=== PATIENT | male | born 1945 | race Caucasian/White ===

== ENCOUNTER 2016-06-21 17:24 | Emergency (ER) | payer OTHER ==
[~2016-06-21] VITALS: Ht 177.8 cm; Wt 81.6 kg
[2016-06-21 17:26] VITALS: BP 133/75; PULSE 71; RESP 16; TEMP 98.6; O2SAT 98
[2016-06-21 20:15] VITALS: BP 129/72; PULSE 73; RESP 17; TEMP 98.3; O2SAT 98
== END 2016-06-21 20:15 | disposition home or self-care (01) ==
LOC: SED 17:24
DX: S20.20XA Contusion of thorax, unspecified, initial encounter (principal); E11.9 Type 2 diabetes mellitus without complications; G20 Parkinson's disease; Z98.890 Other specified postprocedural states; Z90.49 Acquired absence of other specified parts of digestive tract; W18.39XA Other fall on same level, initial encounter; Y93.89 Activity, other specified; Y99.8 Other external cause status; Y92.89 Other specified places as the place of occurrence of the external cause
CPT/HCPCS: 71100; 99284

== ENCOUNTER 2018-09-09 10:40 | Emergency (ER) | payer OTHER ==
[~2018-09-09] VITALS: Ht 175.3 cm; Wt 81.2 kg
[~2018-09-09 10:40] MED LIST: ASPI-1153 PO; CANA300T PO; CARB-62 PO; ENAL5TAB77 PO; ESOM20CA33 PO; GLIM1TAB PO; HYDR25TA4 PO; INSU100I24 SQ; METF1000 PO; MULT PO; PIOG30TA70 PO; RASA1TAB4 PO; SAXA5TAB PO; SIMV40TA2 PO; VITD2000 PO
--- NOTE | 2018-09-09 10:42 | NUR ---
Placed in room 4. Placed on residential monitor, blood pressure machine and pulse oximeter. To gown for exam. Side rails up. Report given to Nehemias ASTUDILLO.
[2018-09-09 10:43] VITALS: BP_SYST 111
--- NOTE | 2018-09-09 10:44 | NUR ---
ER Dr. ERNANDEZ at bedside examining patient.
--- NOTE | 2018-09-09 10:45 | NUR ---
Patient is awake, alert, and oriented x3. Patient was brought in by ambulance. Patient had a fall, presents with scrapes to both elbows and the top of his head, no active bleeding noted.
[2018-09-09] MEDS ORDERED: ACETAMINOPHEN 325 MG TABLET PO ONE (11:00)
[2018-09-09] MEDS ORDERED: BACITRACIN 1 GM OINT TP ONE (11:00)
[2018-09-09] MEDS ORDERED: NS 500 ML IV ONE (11:00)
--- NOTE | 2018-09-09 11:16 | NUR ---
PATIENT LEAVING TO GET X RAY VIA GURNEY. PATIENT HAS NO SIGNS OF DISTRESS.
[2018-09-09 11:22] LABS: BASOPHILS % (AUTO) 0.6 % (0.0-2.0); EOSINOPHILS # (AUTO) 0.1 K/uL (0.0-0.4); EOSINOPHILS % (AUTO) 0.9 % (0.0-4.0); HEMATOCRIT 34.9 % (36-54); HEMOGLOBIN 11.7 g/dL (14.0-18.0); LYMPHOCYTES # (AUTO) 0.5 K/uL (1.0-5.5); LYMPHOCYTES % (AUTO) 7.1 % (20.5-51.5); MEAN CORPUSCULAR HEMOGLOBIN 30 pg (27-31); MEAN CORPUSCULAR HGB CONC 33 % (32-36); MEAN CORPUSCULAR VOLUME 88 fL (79.0-98.0); MONOCYTES # (AUTO) 0.4 K/uL (0.0-1.0); MONOCYTES % (AUTO) 5.5 % (1.7-9.3); NEUTROPHILS % (AUTO) 85.9 % (40.0-70.0); PLATELET COUNT (AUTO) 231 K/uL (130-430); RED BLOOD CELL COUNT(AUTO) 3.95 MIL/uL (4.2-6.2); RED CELL DISTRIBUTION WIDTH 13.5 % (9.0-15.0)
[2018-09-09 11:30] LABS: ANION GAP 11 (5-15); CALCIUM 9.2 mg/dL (8.4-11.0); CHLORIDE 103 mmol/L (98-107); CREATININE 1.91 mg/dL (0.55-1.30); GLUCOSE 166 mg/dL (70-99); POTASSIUM 4.3 mmol/L (3.5-5.1); SODIUM SERUM 138 mmol/L (136-145); UREA NITROGEN, BLOOD 39 mg/dL (8-21)
[2018-09-09 11:32] LABS: PROTHROMBIN TIME 10.4 SECS (9.5-12.5)
[2018-09-09 11:35] LABS: ALANINE AMINOTRANSFERASE 7 U/L (12-78); ALBUMIN 3.5 g/dL (3.4-4.8); ASPARTATE AMINOTRANSFERASE 17 U/L (10-37)
--- NOTE | 2018-09-09 11:53 | NUR ---
PATIENT BACK FROM RADIOLOGY.
[2018-09-09 12:51] LABS: BILIRUBIN,URINE NEGATIVE (NEGATIVE); BLOOD, URINE NEGATIVE (NEGATIVE); CLARITY/URINE CLEAR (CLEAR); COLOR,URINE YELLOW (YELLOW); GLUCOSE,URINE 3+ (NEGATIVE); KETONES,URINE TRACE (NEGATIVE); LEUKOCYTE ESTERASE ,URINE NEGATIVE (NEGATIVE); NITRITE, URINE NEGATIVE (NEGATIVE); PH,URINE 5.5 (5.0-8.0); PROTEIN URINE NEGATIVE (NEGATIVE); UROBILINOGEN,URINE 0.2 (0.2-1.0)
[2018-09-09 13:33] LABS: BACTERIA,URINE None Seen /HPF (None Seen); HYALINE CASTS, URINE 0-10 /LPF (None Seen); RBC,URINE 0-3 /HPF (0-3); WBC,URINE 0-3 /HPF (0-3)
[2018-09-09 13:46] VITALS: BP_SYST 129
--- NOTE | 2018-09-09 13:46 | NUR ---
Patient given written and verbal discharge instructions and verbalizes understanding. ER MD discussed with patient the results and treatment provided. Patient in stable condition. ID arm band removed. IV catheter removed intact and dressing applied, no active bleeding. Rx of bacitracin, keflex, tylenol given. Patient educated on pain management and to follow up with PMD. Pain Scale 0/10. Opportunity for questions provided and answered. Medication side effect fact sheet provided.
== END 2018-09-09 13:46 | disposition home or self-care (01) ==
LOC: SED 10:40
DX: S09.90XA Unspecified injury of head, initial encounter (principal); S50.312A Abrasion of left elbow, initial encounter; S50.311A Abrasion of right elbow, initial encounter; N28.9 Disorder of kidney and ureter, unspecified; E11.9 Type 2 diabetes mellitus without complications; K21.9 Gastro-esophageal reflux disease without esophagitis; I10 Essential (primary) hypertension; G20 Parkinson's disease; E78.5 Hyperlipidemia, unspecified; Z90.49 Acquired absence of other specified parts of digestive tract; Z90.89 Acquired absence of other organs; Z79.82 Long term (current) use of aspirin; Z79.899 Other long term (current) drug therapy; W01.0XXA Fall on same level from slipping, tripping and stumbling without subsequent striking against object, initial encounter; Y93.01 Activity, walking, marching and hiking; Y92.89 Other specified places as the place of occurrence of the external cause; Y99.8 Other external cause status
CPT/HCPCS: 36415; 70450; 71045; 73060; 73070; 73080; 80053; 81000; 84484; 85025; 85610; 85730; 93005; 99284; J7040

== ENCOUNTER 2018-09-28 01:26 | Emergency (ER) | payer OTHER ==
[~2018-09-28] VITALS: Ht 175.3 cm; Wt 81.6 kg
[2018-09-28 01:30] VITALS: BP_SYST 131
[2018-09-28 02:45] VITALS: BP_SYST 131
== END 2018-09-28 02:45 | disposition home or self-care (01) ==
LOC: SED 01:26
DX: R33.9 Retention of urine, unspecified (principal); K59.00 Constipation, unspecified; K21.9 Gastro-esophageal reflux disease without esophagitis; E11.9 Type 2 diabetes mellitus without complications; I10 Essential (primary) hypertension; E78.5 Hyperlipidemia, unspecified; G20 Parkinson's disease; Z90.49 Acquired absence of other specified parts of digestive tract; Z90.89 Acquired absence of other organs; Z79.82 Long term (current) use of aspirin; Z79.899 Other long term (current) drug therapy
CPT/HCPCS: 81002; 99282; 99284

== ENCOUNTER 2018-09-28 14:07 | Inpatient (IN) | payer OTHER ==
[~2018-09-28] VITALS: Ht 177.8 cm; Wt 79.8 kg
[2018-09-28 14:22] VITALS: BP_SYST 126
[2018-09-28 15:15] LABS: BASOPHILS % (AUTO) 0.2 % (0.0-2.0); EOSINOPHILS # (AUTO) 0.1 K/uL (0.0-0.4); EOSINOPHILS % (AUTO) 0.5 % (0.0-4.0); HEMATOCRIT 34.7 % (36-54); HEMOGLOBIN 11.8 g/dL (14.0-18.0); LYMPHOCYTES # (AUTO) 0.4 K/uL (1.0-5.5); LYMPHOCYTES % (AUTO) 3.8 % (20.5-51.5); MEAN CORPUSCULAR HEMOGLOBIN 30 pg (27-31); MEAN CORPUSCULAR HGB CONC 34 % (32-36); MEAN CORPUSCULAR VOLUME 87 fL (79.0-98.0); MONOCYTES # (AUTO) 0.7 K/uL (0.0-1.0); MONOCYTES % (AUTO) 6.3 % (1.7-9.3); NEUTROPHILS # (AUTO) 9.6 K/uL (1.8-7.7); NEUTROPHILS % (AUTO) 89.2 % (40.0-70.0); PLATELET COUNT (AUTO) 227 K/uL (130-430); RED CELL DISTRIBUTION WIDTH 13.4 % (9.0-15.0); WHITE BLOOD COUNT (AUTO) 10.8 K/uL (4.8-10.8)
[2018-09-28] MEDS ORDERED: cefTRIAXone 1 GM in D5W 50 ML IV ONE (15:15)
[2018-09-28] MEDS ORDERED: NACL 0.9% 1,000 ML IV ONE (15:15)
[2018-09-28 15:22] LABS: ANION GAP 11 (5-15); CALCIUM 9.1 mg/dL (8.4-11.0); CHLORIDE 99 mmol/L (98-107); CREATININE 1.72 mg/dL (0.55-1.30); GLUCOSE 133 mg/dL (70-99); POTASSIUM 3.8 mmol/L (3.5-5.1); SODIUM SERUM 134 mmol/L (136-145); UREA NITROGEN, BLOOD 36 mg/dL (8-21)
[2018-09-28 15:27] LABS: ALANINE AMINOTRANSFERASE 8 U/L (12-78); ALBUMIN 3.6 g/dL (3.4-4.8); ASPARTATE AMINOTRANSFERASE 23 U/L (10-37); TOTAL BILIRUBIN 1.8 mg/dL (0.0-1.0)
[2018-09-28] MEDS ORDERED: cefTRIAXone 1 GM VIAL ONE (15:27)
[2018-09-28 17:22] LABS: BILIRUBIN,URINE NEGATIVE (NEGATIVE); BLOOD, URINE 3+ (NEGATIVE); CLARITY/URINE CLOUDY (CLEAR); COLOR,URINE YELLOW (YELLOW); GLUCOSE,URINE 3+ (NEGATIVE); KETONES,URINE NEGATIVE (NEGATIVE); LEUKOCYTE ESTERASE ,URINE NEGATIVE (NEGATIVE); NITRITE, URINE NEGATIVE (NEGATIVE); PH,URINE 5.5 (5.0-8.0); PROTEIN URINE 1+ (NEGATIVE); UROBILINOGEN,URINE 0.2 (0.2-1.0)
[2018-09-28 18:07] VITALS: BP_SYST 152
[2018-09-28 18:07] LABS: BACTERIA,URINE FEW /HPF (None Seen); COARSE GRANULAR CASTS,URINE 0-10 /LPF (None Seen); FINE GRANULAR CASTS,URINE 0-10 /LPF (None Seen); RBC,URINE >100 /HPF (0-3); URINE AMORPHOUS URATE 3+ /HPF (None Seen)
[2018-09-28 18:08] LABS: MUCUS,URINE 1+ /LPF (None Seen)
[2018-09-28] MEDS: NACL 0.9% 1,000 ML IV SCH ×2 (18:44→23:13)
[2018-09-28] MEDS ORDERED: LEVOFLOXACIN 500 MG/D5W 100 ML IV ONE (18:44)
[2018-09-28] MEDS: LEVOFLOXACIN 500 MG/D5W 100 ML IV SCH (18:44)
[2018-09-28 20:00] VITALS: BP_SYST 118
[2018-09-29] MEDS ORDERED: INSULIN LISPRO SLIDING SCALE 100 UNITS/ML VIAL (humaLOG) SUBCUT PRN (00:45)
[2018-09-29 01:02] VITALS: BP_SYST 132
[2018-09-29 08:03] VITALS: BP_SYST 136
[2018-09-29] MEDS ORDERED: PIOGLITAZONE HCL 15 MG TABLET PO ONE (10:15)
[2018-09-29] MEDS ORDERED: CARBIDOPA/LEVODOPA 25/250 MG TABLET PO ONE (10:15)
[2018-09-29] MEDS ORDERED: SIMVASTATIN 40 MG TABLET PO ONE (10:15)
[2018-09-29 10:32] LABS: BASOPHILS % (AUTO) 0.1 % (0.0-2.0); EOSINOPHILS % (AUTO) 0.4 % (0.0-4.0); HEMOGLOBIN 11.8 g/dL (14.0-18.0); LYMPHOCYTES # (AUTO) 0.4 K/uL (1.0-5.5); LYMPHOCYTES % (AUTO) 4.2 % (20.5-51.5); MEAN CORPUSCULAR HEMOGLOBIN 30 pg (27-31); MEAN CORPUSCULAR HGB CONC 34 % (32-36); MEAN CORPUSCULAR VOLUME 87 fL (79.0-98.0); MONOCYTES # (AUTO) 0.6 K/uL (0.0-1.0); MONOCYTES % (AUTO) 6.6 % (1.7-9.3); NEUTROPHILS # (AUTO) 8.6 K/uL (1.8-7.7); NEUTROPHILS % (AUTO) 88.7 % (40.0-70.0); PLATELET COUNT (AUTO) 205 K/uL (130-430); RED BLOOD CELL COUNT(AUTO) 4.01 MIL/uL (4.2-6.2); RED CELL DISTRIBUTION WIDTH 13.5 % (9.0-15.0); WHITE BLOOD COUNT (AUTO) 9.7 K/uL (4.8-10.8)
[2018-09-29 11:30] VITALS: BP_SYST 123
[2018-09-29 14:22] LABS: ANION GAP 9 (5-15); CHLORIDE 102 mmol/L (98-107); CREATININE 1.35 mg/dL (0.55-1.30); GLUCOSE 164 mg/dL (70-99); POTASSIUM 4.1 mmol/L (3.5-5.1); SODIUM SERUM 136 mmol/L (136-145); UREA NITROGEN, BLOOD 22 mg/dL (8-21)
[2018-09-29] MEDS ORDERED: NA PHOS,M-B/NA PHOS,DI-BA 118 ML (FLEET ENEMA) RC ONE (16:00)
[2018-09-29 16:03] VITALS: BP_SYST 111
[2018-09-29] MEDS: LEVOFLOXACIN 500 MG/D5W 100 ML IV SCH (17:15)
[2018-09-29 18:09] VITALS: BP_SYST 136
[2018-09-29] MEDS ORDERED: CARBIDOPA/LEVODOPA 25/250 MG TABLET PO SCH (21:00)
[2018-09-29] MEDS ORDERED: ENALAPRIL MALEATE 5 MG TABLET (VASOTEC) PO SCH (21:00)
[2018-09-30] MEDS ORDERED: GLIMEPIRIDE 2 MG TABLET PO SCH (07:00)
[2018-09-30] MEDS ORDERED: PIOGLITAZONE HCL 15 MG TABLET PO SCH (09:00)
[2018-09-30] MEDS ORDERED: SIMVASTATIN 40 MG TABLET PO SCH (09:00)
== END 2018-09-29 18:53 | disposition home or self-care (01) | DRG 695 ==
LOC: SED 14:07 → SMU 17:53
PROVIDERS: ADMIT Internal Medicine Hospice and Palliative Medicine; ATTEND Internal Medicine Hospice and Palliative Medicine
DX: R33.9 Retention of urine, unspecified (principal); N17.0 Acute kidney failure with tubular necrosis; E11.9 Type 2 diabetes mellitus without complications; E78.5 Hyperlipidemia, unspecified; G20 Parkinson's disease; I10 Essential (primary) hypertension; R31.0 Gross hematuria; N19 Unspecified kidney failure; Z79.84 Long term (current) use of oral hypoglycemic drugs
CPT/HCPCS: 36415; 71045; 76770; 80048; 80053; 81000-TC; 82962; 83605; 84484; 85025; 87040-TC; 87086; 93005; 96361; 96365; 99285; J0696; J1956; J7030

== ENCOUNTER 2018-10-08 04:36 | Emergency (ER) | payer OTHER ==
[~2018-10-08] VITALS: Ht 177.8 cm; Wt 77.1 kg
[2018-10-08 04:39] VITALS: BP_SYST 122
[2018-10-08 07:45] VITALS: BP_SYST 113
== END 2018-10-08 07:45 | disposition home or self-care (01) ==
LOC: SED 04:36
DX: R33.9 Retention of urine, unspecified (principal); E11.9 Type 2 diabetes mellitus without complications; K21.9 Gastro-esophageal reflux disease without esophagitis; I10 Essential (primary) hypertension; G20 Parkinson's disease; E78.5 Hyperlipidemia, unspecified; Z79.82 Long term (current) use of aspirin; Z79.899 Other long term (current) drug therapy
CPT/HCPCS: 99284

== ENCOUNTER 2018-10-09 06:20 | Emergency (ER) | payer OTHER ==
[~2018-10-09] VITALS: Ht 177.8 cm; Wt 81.2 kg
[2018-10-09 06:25] VITALS: BP_SYST 139
--- NOTE | 2018-10-09 06:25 | NUR ---
Patient to ER bed 5 to gown for evaluation. Side rails up. Report given to DEEPIKA ASTUDILLO.
--- NOTE | 2018-10-09 06:31 | NUR ---
Note awais in ED - 10/09/18 at 0631 by [email or web address] Patient to ER bed 5 for evaluation. Side rails up.
--- NOTE | 2018-10-09 06:31 | NUR ---
Pt C/O urinary blockage since this evening. Was seen in the ER and a folry catheter was placed. Pt noticed zero drainage from the night. Has an appoint with urologist at @830 this morning. Denies any pain or any other symptoms at this time. Will continue to monitor.
--- NOTE | 2018-10-09 07:05 | NUR ---
ER at bedside examining patient.
--- NOTE | 2018-10-09 07:07 | NUR ---
report from Manuelito ASTUDILLO, patient alert ,sitting on gurney, at bedside
[2018-10-09 07:13] VITALS: BP_SYST 140
--- NOTE | 2018-10-09 07:13 | NUR ---
Patient given written and verbal discharge instructions and verbalizes understanding. ER MD discussed with patient the results and treatment provided. Patient in stable condition. ID arm band removed. No Rx given. Patient educated on pain management and to follow up with PMD. Pain Scale 0/10. Opportunity for questions provided and answered. Medication side effect fact sheet provided.
== END 2018-10-09 07:13 | disposition home or self-care (01) ==
LOC: SED 06:20
DX: T83.098A Other mechanical complication of other urinary catheter, initial encounter (principal); R33.9 Retention of urine, unspecified; E11.9 Type 2 diabetes mellitus without complications; K21.9 Gastro-esophageal reflux disease without esophagitis; I10 Essential (primary) hypertension; G20 Parkinson's disease; E78.5 Hyperlipidemia, unspecified; Z79.82 Long term (current) use of aspirin; Z79.899 Other long term (current) drug therapy; X58.XXXA Exposure to other specified factors, initial encounter
CPT/HCPCS: 99284